=== PATIENT | male | born 1995 | race Caucasian/White ===

== ENCOUNTER 2019-04-18 10:20 | Day surgery (SDC) | payer BC ==
--- NOTE | 2019-04-14 16:33 | HP ---
PREOPERATIVE HISTORY AND PHYSICAL: DATE OF ADMISSION/SURGERY: 04/18/[address] [facility] ATTENDING SURGEON: Anabella Vela MD * (DICTATED BY CELESTE ARIZA) PROCEDURE: Ganglion cyst excision, right wrist. HISTORY OF PRESENT ILLNESS: This is a 23-year-old male who has a lump on the volar radial aspect of his right wrist that has been present for about a year. He has seen Dr. Aguilar in the past, who has injected it twice, but the pain in the lump had returned each time. It is minimally bothersome at rest, but he has problems if he tries to lift weights or do pushups. He denies any associated numbness and tingling and there was no specific injury. The patient would like to have the lump removed. PAST MEDICAL HISTORY: Current back pain, muscular in nature. PAST SURGICAL HISTORY: 1. Open reduction internal fixation, left foot. 2. Removal of hardware, left foot. MEDICATIONS: Advil p.r.n. ALLERGIES: No known drug allergies. FAMILY MEDICAL HISTORY: Noncontributory. SOCIAL HISTORY: The patient works for [employer] in maintenance. He chews tobacco, has done so for 5 years. He denies recreational drug use. He drinks alcohol on occasion. REVIEW OF SYSTEMS: Negative for general, cephalic, cardiovascular, respiratory , GI, , other musculoskeletal, integumentary, endocrine, neurologic, and hematologic symptoms. Infectious Disease: Negative for MRSA, hepatitis C, HIV. PHYSICAL EXAMINATION GENERAL: A well-developed, well-nourished 23-year-old male, in no acute distress. VITAL SIGNS: Height 6 feet tall, weight 201 pounds. Pulse rate 72, blood pressure 110/72. HEENT: Normocephalic, atraumatic. Pupils are equal, round, and reactive to light and accommodation. Extraocular movements are intact. Throat is clear. NECK: Supple. No palpable lymph nodes. PULMONARY: Lungs are clear to auscultation bilaterally. No wheezes, rales, or rhonchi. CARDIOVASCULAR: Regular rate and rhythm. S1, S2. No murmurs, rubs, or gallops. No edema. ABDOMEN: Positive bowel sounds, soft, nontender. NEUROLOGIC: Alert and oriented x3. Cranial nerves II through XII are intact. Sensation is intact to light touch. MUSCULOSKELETAL: On exam of his right wrist, he has a tender mass on the volar radial aspect of the wrist. He has pain with full extension of the wrist and with full flexion. He can fully flex his fingers. Skin is intact. Neurovascular function is intact. IMPRESSION: Volar wrist ganglion on the right. PLAN: The patient is scheduled to undergo an excision of ganglion cyst, right wrist, with Dr. Vela on 04/18/19. He will return to the office 10 days postop for followup and suture removal. A prescription for Ultracet was e-scribed to the patient's pharmacy for postoperative pain management. CELESTE ARIZA [id number]/[facility] #: [id number] MTDNilo
[~2019-04-18 10:20] MED LIST: Buffered Lidocaine 1% SYRIN* 1 ML/SYRINGE INTRADERM ONE; Lactated Ringers 1000 ML Bag* 1,000 ML IV SCH
[2019-04-18] MEDS ORDERED: Bupivacaine 0.5%* 50 ML MDV VIAL ONE (11:50)
[2019-04-18] MEDS ORDERED: Lidocaine 1% INJ* 10 MG/ML 30 ML SDV ONE (11:50)
[2019-04-18] MEDS ORDERED: Naloxone* 0.4 MG/ML 1 ML VIAL IV PRN (11:58)
[2019-04-18] MEDS ORDERED: fentaNYL* 50 MCG/ML 2 ML VIAL (100 MCG VIAL) ONE (12:03)
[2019-04-18] MEDS ORDERED: Midazolam* 1 MG/ML 2 ML VIAL (2 MG) ONE (12:03)
[2019-04-18] MEDS ORDERED: Lidocaine 2% PF * 5 ML VIAL ONE (12:07)
[2019-04-18] MEDS ORDERED: Propofol* 10 MG/ML 20 ML BTL ONE (12:07)
[2019-04-18 12:43] VITALS: BP 112/58
--- NOTE | 2019-04-18 19:20 | OP ---
DATE OF OPERATION: 04/18/19 [facility] DATE OF : 89 SURGEON: Anabella Vela MD SUPERVISOR ORCHARD: CELESTE White ANESTHESIA: Local MAC. PRE-OP DIAGNOSIS: Right wrist ganglion. POST-OP DIAGNOSIS: Right wrist ganglion. OPERATIVE PROCEDURE: Removal of right wrist ganglion. ESTIMATED BLOOD LOSS: Zero. TOURNIQUET TIME: Approximately 15 minutes. INDICATIONS FOR PROCEDURE: Jarad is a 23-year-old male who has a painful mass on the volar radial aspect of his right wrist. It has been injected twice by Dr. Aguilar. He presents now for removal. DESCRIPTION OF PROCEDURE: The patient was brought to the operating room, was given a sedation anesthetic and a local infiltration of 10 cc of 1% plain lidocaine on the volar aspect of his right wrist. The skin of his right hand and forearm was prepped and draped in the usual sterile fashion. The hand and forearm were exsanguinated and the tourniquet elevated to 250 mmHg. A chevron incision was made centered over the volar radial aspect of the wrist and we dissected through the subcutaneous tissue. The radial artery was carefully dissected out and retracted by the surgical elastic knitter hand frame, Sally Easmtan. There was a broad-based sessile ganglion cyst emanating from the radiocarpal joint. It was removed with the portion of the wrist joint capsule. The edges of the capsule were cauterized with a Bovie. The wound was irrigated and the skin edges reapproximated with 4-0 nylon suture. The wound was dressed with Xeroform , 4x4, Webril, and an Phil wrap. The patient tolerated the procedure well and was brought to the recovery room in good condition. [id number]/[facility] #: [id number] [facility]
== END 2019-04-18 13:07 | disposition home or self-care (01) ==
LOC: OREAST 10:20
PROVIDERS: ATTEND Orthopaedic Surgery
DX: M67.431 Ganglion, right wrist (principal); Z72.0 Tobacco use; M54.9 Dorsalgia, unspecified
CPT/HCPCS: 88304; J2250; J2704; J3010; J3490